=== PATIENT | male | born 1980 | race Caucasian/White ===

== ENCOUNTER 2017-03-24 17:19 | Emergency (ER) | payer BC ==
--- NOTE | ~2017-03-24 | CR126 ---
[facility]. [facility] A Service of [facility] RADIOLOGY TEXT RESULTS PATIENT: WILLY RODRIGUEZ LOCATION: SED : 82 UNIT #: [id number] AGE: [address]: Christie Chairez SEX: M ORDER DR: [id number] [place] [id number] E MR#: [id number] Acc #: [id number] NAME: WILLY RODRIGUEZ. : 1980 SEX: M STUDY DATE/TIME: 03/24/2017 17:30 UNIT: SED ROOM: STUDY DESCRIPTION: CR Foot Complete Min 3 View Lt Attending Physician: Christie Chairez Pa-C Ordering Physician: Christie Chairez Pa-C Primary Care Physician: Eleazar Hughes M.D. MEDICAL IMAGING REPORT This report is preliminary unless electronic signature is present. EXAM Left foot series INDICATIONS Left foot pain after an injury today. PROCEDURE 3 views left foot COMPARISON None FINDINGS No fracture or dislocation. IMPRESSION No acute findings. Dictated by... Martin Robles M.D. THIS IS AN ELECTRONICALLY VERIFIED REPORT Martin Robles M.D. at 03/25/2017 7:36 AM EED/psc TD: 03/24/2017 23:41 JOB #: [id number] MEDICAL IMAGING REPORT Page 1 of 1
[~2017-03-24 17:19] MED LIST: AUGMENTIN875 MG PO; NAPROSYN-EC500 M1 DOB; NAPROXEN PO; NO MEDICATIONS; OXYCODONE HCL5 MG PO
== END 2017-03-24 18:13 | disposition home or self-care (01) ==
LOC: SED 17:19
DX: S93.402A Sprain of unspecified ligament of left ankle, initial encounter (principal); F17.200 Nicotine dependence, unspecified, uncomplicated; X50.1XXA Overexertion from prolonged static or awkward postures, initial encounter; Y92.830 Public park as the place of occurrence of the external cause
CPT/HCPCS: 73610; 73630; 99283